=== PATIENT | male | born 1960 | race Caucasian/White ===

== ENCOUNTER 2017-02-03 09:01 | Emergency (ER) | payer SELFPAY ==
[2017-02-03 09:02] VITALS: BMI 31.6
[2017-02-03] MEDS ORDERED: Sodium Chloride 0.9% 1,000 ML IV ONE (09:23)
[2017-02-03 09:28] VITALS: TEMP 97.8
[2017-02-03] MEDS ORDERED: Sodium Chloride 0.9% 1,000 ML ONE (09:33)
--- NOTE | 2017-02-03 09:52 | C.PDOC ---
History Of Present Illness 56 y/o male with PMHx of Diverticulitis presents to ED with complaints of abdominal pain , nausea and vomiting since last night with subjective fever. Patient denies blood in stool, diarrhea. pt reports "Tingling to lower extremities" pt reports pain worse to his suprapubic region and "feels like his diverticulitis"No further complaints at this time. Time Seen by Provider: 02/03/17 09:11 Chief Complaint (Nursing): Abdominal Pain History Per: Patient History/Exam Limitations: no limitations Onset/Duration Of Symptoms: Days Past Medical History Reviewed: Historical Data, Nursing Documentation, Vital Signs Vital Signs: Last Vital Signs Temp 97.8 F 02/03/17 09:21 Pulse 74 02/03/17 09:21 Resp 20 02/03/17 09:21 BP 119/78 02/03/17 09:21 Pulse Ox 97 02/03/17 10:12 - Medical History PMH: Diverticulitis (BY CT IMAGING PER PT) Family History: States: Unknown Family Hx - Social History Hx Tobacco Use: No Hx Alcohol Use: No Hx Substance Use: No - Immunization History Hx Tetanus Toxoid Vaccination: No Hx Influenza Vaccination: No Hx Pneumococcal Vaccination: No Review Of Systems Except As Marked, All Systems Reviewed And Found Negative. Constitutional: Negative for: Fever, Chills Gastrointestinal: Positive for: Nausea, Vomiting, Abdominal Pain. Negative for : Diarrhea Genitourinary: Negative for: Dysuria Neurological: Negative for: Dizziness Physical Exam - Physical Exam Appears: Non-toxic, No Acute Distress Skin: Normal Color, Warm Head: Atraumatic, Normacephalic Oral Mucosa: Moist Neck: Normal ROM Cardiovascular: Rhythm Regular Respiratory: No Rales, No Rhonchi, No Wheezing Gastrointestinal/Abdominal: Tenderness (Mild focal tenderness to superpubic region), No Guarding, No Rebound Extremity: Normal ROM Neurological/Psych: Oriented x3, Normal Speech, Normal Cognition ED Course And Treatment - Laboratory Results Result Diagrams: 02/03/17 09:50 02/03/17 09:50 O2 Sat by Pulse Oximetry: 97 Medical Decision Making Medical Decision Making: r/o colitis diverticulitis, uti - labs imaging pending 1025: pt reassesed. pain improved. pt offered ct to r/o diverticultis, appendicitis (minimal rlq ttp), or other pathology. pt declines, specifically requesting antibiotic trial, as pt has had multiple ct scans. understandings cannot r/o perf, abscess or other complication. pt states he will return with worsening. Disposition - Disposition Referrals: [facility] [Outside] [facility] [Outside] Amando Kincaid MD [Staff Provider] - Disposition: HOME/ ROUTINE Disposition Time: 10:25 Condition: STABLE Additional Instructions: please see specialist and clinic. return to er with worsening symptoms or concerns. you are declining ct imaging at this time, but you are able to return to er at any point with any concern. Prescriptions: Ciprofloxacin [Cipro] 500 mg PO BID #20 tab metroNIDAZOLE [Flagyl] 500 mg PO TID #30 tab Instructions: Acute Abdominal Pain (ED), Diverticulitis (ED) Print Language: ITALIAN - Clinical Impression Clinical Impression: Abdominal pain - PA / OPERATING ENGINEER APPRENTICE / Resident Statement / has reviewed & agrees with the documentation as recorded. MD/DO has examined the patient and agrees with the treatment plan. - Scribe Statement The provider has reviewed the documentation as recorded by the Olivia Arias All medical record entries made by the Olivia were at my direction and personally dictated by me. I have reviewed the chart and agree that the record accurately reflects my personal performance of the history, physical exam, medical decision making, and the department course for this patient. I have also personally directed, reviewed, and agree with the discharge instructions and disposition.
[2017-02-03 10:01] LABS: CHLORIDE 101 mmol/L (98-107)
[2017-02-03 10:02] LABS: POTASSIUM 3.8 mmol/L (3.6-5.2); SODIUM 138 mmol/L (132-148)
[2017-02-03 10:03] LABS: BASO % 0.5 % (0.0-2.0); EOS # 0.1 K/uL (0.0-0.7); EOS % 1.7 % (0.0-4.0); HEMATOCRIT 42.9 % (35.0-51.0); LYMPH # 1.5 K/uL (1.0-4.3); LYMPH % 21.6 % (20.0-40.0); MEAN CELL VOLUME 86.4 fL (80.0-94.0); MEAN CORPUSCULAR HEMOGLOBIN 28.6 pg (27.0-31.0); MEAN CORPUSCULAR HGB CONC 33.1 g/dL (33.0-37.0); MONO # 0.9 K/uL (0.0-0.8); RED CELL DISTRIBUTION WIDTH 14.5 % (11.5-14.5); WHITE BLOOD COUNT 6.8 K/uL (4.8-10.8)
[2017-02-03 10:04] LABS: ALB/GLOB RATIO 1.2 (1.0-2.1); ALKALINE PHOSPHATASE 89 U/L (38-126); ALT/SGPT 36 U/L (21-72); AST/SGOT 23 U/L (17-59); BILIRUBIN,TOTAL 0.7 mg/dL (0.2-1.3); BLOOD UREA NITROGEN 28 mg/dL (9-20); CARBON DIOXIDE 23 mmol/L (22-30); GFR AFRICAN-AMERICAN > 60; GLUCOSE,RANDOM 122 mg/dL (75-110)
[2017-02-03 10:05] LABS: CALCIUM 8.9 mg/dl (8.6-10.4); RBC URINE < 1 /hpf (0-3); URINE BILIRUBIN NEGATIVE (NEGATIVE); URINE BLOOD NEGATIVE (NEGATIVE); URINE COLOR Yellow (YELLOW); URINE GLUCOSE (UA) NORMAL (Normal); URINE KETONE NEGATIVE (NEGATIVE); URINE LEUKOCYTE ESTERASE NEG Leu/uL (Negative); URINE PROTEIN NEGATIVE (NEGATIVE); URINE UROBILINOGEN NORMAL mg/dL (0.2-1.0); WBC URINE < 1 /hpf (0-5)
[2017-02-03 10:54] VITALS: BP 123/60; PULSE 66; RESP 18; O2SAT 98
== END 2017-02-03 10:55 | disposition home or self-care (01) ==
LOC: C.ER 09:01
DX: R10.30 Lower abdominal pain, unspecified (principal)
CPT/HCPCS: 80053; 81001; 83690; 85025; 85610; 85730; 96374; 96375; 99284; J1885; J2405; J7040

== ENCOUNTER 2017-06-11 09:12 | Emergency (ER) | payer OTHER, SELFPAY ==
[2017-06-11 09:12] VITALS: BMI 31.6
[2017-06-11 09:32] VITALS: BP 129/85; PULSE 57; RESP 16; TEMP 97.7; O2SAT 98
--- NOTE | 2017-06-11 10:05 | C.PDOC ---
History Of Present Illness 56 yr old male presents to the ER for evaluation of right periorbital swelling and right eye lid swelling for the past 2 days. Patient reports of pain with eye movement. Denies trauma, fever, vision changes, nausea, vomiting, headache, weakness or numbness. Time Seen by Provider: 06/11/17 10:02 Chief Complaint (Nursing): Eye Problem History Per: Patient History/Exam Limitations: no limitations Onset/Duration Of Symptoms: Days (2) Current Symptoms Are (Timing): Still Present Injury To Eye?: No Past Medical History Reviewed: Historical Data, Nursing Documentation, Vital Signs Vital Signs: Last Vital Signs Temp 97.7 F 06/11/17 09:29 Pulse 57 L 06/11/17 09:29 Resp 16 06/11/17 09:29 BP 129/85 06/11/17 09:29 Pulse Ox 98 06/11/17 12:17 - Medical History PMH: Diverticulitis (BY CT IMAGING PER PT) Family History: States: No Known Family Hx - Social History Hx Tobacco Use: No Hx Alcohol Use: No Hx Substance Use: No - Immunization History Hx Tetanus Toxoid Vaccination: No Hx Influenza Vaccination: No Hx Pneumococcal Vaccination: No Review Of Systems Except As Marked, All Systems Reviewed And Found Negative. Constitutional: Negative for: Fever Eyes: Positive for: Pain (Right eye, pain with movement of the eye.), Other ((+ ) Periorbital swelling. Right eyelid swelling. ). Negative for: Vision Change Gastrointestinal: Negative for: Nausea, Vomiting Neurological: Negative for: Weakness, Numbness, Headache Physical Exam - Physical Exam Appears: Non-toxic, No Acute Distress Skin: Warm, Dry, No Rash Head: Atraumatic, Normacephalic Eye(s): bilateral: PERRL, EOMI, right: Other (Periorbital swelling and errythema. Mild pain with ROM of the eye. No conjuctival errythema. ) Oral Mucosa: Moist Neck: Normal, Normal ROM, Supple Lymphatic: No Adenopathy Chest: Symmetrical, No Tenderness Cardiovascular: Rhythm Regular, No Murmur Respiratory: Normal Breath Sounds, No Rales, No Rhonchi, No Stridor, No Wheezing Extremity: Normal ROM, No Swelling Neurological/Psych: Oriented x3, Normal Speech, Normal Cognition, Normal Motor ED Course And Treatment O2 Sat by Pulse Oximetry: 98 (RA) Pulse Ox Interpretation: Normal Against Medical Advice - AMA Patient Left Against Medical Advice: The patient declines admission to the hospital and wishes to leave the Emergency Department. This action is against my medical advice. This decision was made with informed refusal. The patient was told that admission to the hospital is necessary. Explanation of the reasons why were discussed. The risks of leaving were explained to the patient and include, but are not limited to, worsening of known or currently unknown conditions, permanent disability and from undiagnosed or untreated conditions. The patient has the capacity to make this informed decision and understands my explanation of the current medical problem and risks of leaving. The patient voluntarily accepts these risks and signed an AMA form documenting our conversation. The patient was given the opportunity to ask questions and reconsider. The patient was encouraged to return to the Emergency Department at any time for further care. Medical Decision Making Medical Decision Making: PLAN: siuspect periorbital cellulitis, however would like to exclude orbital extention as pt reports "pain with movement" * Bactrim PO * Toradol IM NOTE: Patient refuses any blood work or images at this time. Patient signed out AMA. Disposition - Disposition Referrals: Jer Brink MD [Staff Provider] - Disposition: AGAINST MEDICAL ADVICE Disposition Time: 11:00 Condition: UNKNOWN Additional Instructions: please follow up with your doctor/clinic and specialist. return to er with worsening symptoms or concerns. you are declining any imaging of the eye. you are able to return at any point with any concern Prescriptions: Sulfamethoxazole/Trimethoprim [Bactrim DS 800 mg-160 mg] 1 tab PO BID #14 tab Instructions: Periorbital Cellulitis in Adults (ED) Forms: [employer] (North Korean) Print Language: GREENLANDIC - Clinical Impression Clinical Impression: Periorbital cellulitis - Scribe Statement The provider has reviewed the documentation as recorded by the Jilibemily Ramirez Provider Attestation: All medical record entries made by the Olivia were at my direction and personally dictated by me. I have reviewed the chart and agree that the record accurately reflects my personal performance of the history, physical exam, medical decision making, and the department course for this patient. I have also personally directed, reviewed, and agree with the discharge instructions and disposition.
[2017-06-11] MEDS ORDERED: Tmp-Smz 800 mg-160 mg DS Tab PO STA (10:10)
[2017-06-11] MEDS ORDERED: Tmp-Smz 800 mg-160 mg DS Tab ONE (10:13)
== END 2017-06-11 10:28 | disposition left against medical advice (07) ==
LOC: C.ER 09:12
DX: L03.213 Periorbital cellulitis (principal)
CPT/HCPCS: 96372; 99283; J1885

== ENCOUNTER 2017-08-18 10:08 | Emergency (ER) | payer SELFPAY ==
[2017-08-18 10:08] VITALS: BMI 31.6
--- NOTE | 2017-08-18 10:44 | C.PDOC ---
History Of Present Illness 56 y/o male presents to ED for evaluation of nasal congestion and mild headache for the last few days. Notes taking 800mg Motrin yesterday morning, did not take any medication today. No sick contact. Denies nausea, vomiting, or fever. Time Seen by Provider: 08/18/17 10:27 Chief Complaint (Nursing): Headache History Per: Patient History/Exam Limitations: no limitations Onset/Duration Of Symptoms: Days Current Symptoms Are (Timing): Still Present Quality: Aching Preceeding Symptoms: denies: Visual Disturbances, Known Migraine Symptoms Associated Symptoms: denies: Photophobia, Blurred Vision, Nausea, Vomiting, Extremity Weakness Recent travel outside of the [place]: No Additional History Per: Patient Past Medical History Reviewed: Historical Data, Nursing Documentation, Vital Signs Vital Signs: Last Vital Signs Temp 98.4 F 08/18/17 11:13 Pulse 73 08/18/17 11:13 Resp 16 08/18/17 11:13 BP 127/79 08/18/17 11:13 Pulse Ox 99 08/18/17 11:13 - Medical History PMH: Diverticulitis (BY CT IMAGING PER PT) Denies: Chronic Kidney Disease Family History: States: Unknown Family Hx - Social History Hx Tobacco Use: No Hx Alcohol Use: No Hx Substance Use: No - Immunization History Hx Tetanus Toxoid Vaccination: No Hx Influenza Vaccination: No Hx Pneumococcal Vaccination: No Review Of Systems Except As Marked, All Systems Reviewed And Found Negative. Constitutional: Negative for: Fever, Chills ENT: Positive for: Nose Congestion. Negative for: Ear Pain, Nose Discharge, Throat Pain Cardiovascular: Negative for: Chest Pain Respiratory: Negative for: Cough, Shortness of Breath Gastrointestinal: Negative for: Nausea, Vomiting, Abdominal Pain Neurological: Positive for: Headache. Negative for: Weakness, Numbness, Dizziness Physical Exam - Physical Exam Appears: Non-toxic, No Acute Distress Skin: Normal Color, Warm, Dry Head: Atraumatic, Normacephalic Eye(s): bilateral: Normal Inspection Nose: Other (mild erythema in nasal passageway) Oral Mucosa: Moist Tongue: Normal Appearing Lips: Normal Appearing Throat: Erythema, No Exudate, No Drooling Neck: Normal ROM, Supple Cardiovascular: Rhythm Regular, No Murmur Respiratory: Normal Breath Sounds, No Rales, No Rhonchi, No Wheezing Gastrointestinal/Abdominal: Soft, No Tenderness Extremity: Normal ROM Neurological/Psych: Oriented x3, Normal Speech ED Course And Treatment O2 Sat by Pulse Oximetry: 97 Pulse Ox Interpretation: Normal Medical Decision Making Medical Decision Making: prob sinus headaches- sneezing, erythematous nasal passages, always rubbing his nose, normal ears, and sinus headache described LOW susp of acute brain issues. extensively educated for moderate use of NSAIDS and nasal decongestants. Disposition Doctor Will See Patient In The: Office Counseled Patient/Family Regarding: Studies Performed, Diagnosis - Disposition [facility] Disposition: HOME/ ROUTINE Disposition Time: 10:44 Condition: GOOD Additional Instructions: blaine Dayquil o' Nyquil "SINUS" preparaciones, usualmente 4 veces al reinier robert necessario Cualquier medicamento para el gripe que dice "sinus" tiene el ingrediente para descongestionar los pasages nasales. Ibuprofeno/Motrin/Advil 4900-600 mg cada 6 horas robert necessario. Tylenol 1000 mg cada 6 horas robert necessario para dolor de rosalinda. Instructions: Sinusitis (ED), Acute Headache (ED) Forms: [employer] (Persian) Print Language: GUINEAN - Clinical Impression Clinical Impression: Headache, Acute sinusitis - Scribe Statement The provider has reviewed the documentation as recorded by the Jilibemily Russ All medical record entries made by the Scribe were at my direction and personally dictated by me. I have reviewed the chart and agree that the record accurately reflects my personal performance of the history, physical exam, medical decision making, and the department course for this patient. I have also personally directed, reviewed, and agree with the discharge instructions and disposition.
[2017-08-18 11:16] VITALS: BP 127/79; PULSE 73; RESP 16; TEMP 98.4
[2017-08-18 11:33] VITALS: O2SAT 97
== END 2017-08-18 11:21 | disposition home or self-care (01) ==
LOC: C.ER 10:08
DX: J01.90 Acute sinusitis, unspecified (principal); R51 Headache

== ENCOUNTER 2017-11-09 08:36 | Emergency (ER) | payer OTHER ==
[2017-11-09 08:45] VITALS: BMI 30.9
[2017-11-09 08:48] VITALS: PULSE 71; TEMP 98.3
[2017-11-09] MEDS ORDERED: Naproxen 550 mg Tab PO STA (09:26)
--- NOTE | 2017-11-09 09:29 | C.PDOC ---
History Of Present Illness 57 year old male presents to the ER with a complaint of a fever, chills, productive cough, headache, nasal congestion, and body aches since last night. Denies sick contact, recent travel, or abdominal pain. Time Seen by Provider: 11/09/17 09:13 Chief Complaint (Nursing): Flu-like Symptoms History Per: Patient History/Exam Limitations: no limitations Onset/Duration Of Symptoms: Hrs Current Symptoms Are (Timing): Still Present Location Of Pain: Diffuse Myalgias Sick Contacts (Context): None Associated Symptoms: Fever, Chills, Cough (Productive), Myalgias, Nasal Congestion, Other (Headache) Ear Symptoms: Bilateral: None Recent travel outside of the [place]: No Past Medical History Reviewed: Historical Data, Nursing Documentation, Vital Signs Vital Signs: Last Vital Signs Temp 98.3 F 11/09/17 08:45 Pulse 71 11/09/17 09:37 Resp 16 11/09/17 09:37 BP 130/82 11/09/17 09:37 Pulse Ox 97 11/09/17 11:49 - Medical History PMH: Diverticulitis (BY CT IMAGING PER PT) Family History: States: Unknown Family Hx - Social History Hx Tobacco Use: No Hx Alcohol Use: No Hx Substance Use: No - Immunization History Hx Tetanus Toxoid Vaccination: No Hx Influenza Vaccination: No Hx Pneumococcal Vaccination: No Review Of Systems Except As Marked, All Systems Reviewed And Found Negative. Constitutional: Positive for: Fever, Chills ENT: Positive for: Nose Congestion Respiratory: Positive for: Cough (Productive) Musculoskeletal: Positive for: Other (Body aches) Neurological: Positive for: Headache Physical Exam - Physical Exam Appears: Non-toxic, Other (Mildly uncomfortable) Skin: Normal Color, Warm, Dry Head: Atraumatic, Normacephalic Eye(s): bilateral: Normal Inspection Ear(s): Bilateral: Normal Nose: Normal Oral Mucosa: Moist Throat: Normal, No Erythema, No Exudate Neck: Normal, Supple Chest: Symmetrical, Tenderness Cardiovascular: Rhythm Regular Respiratory: Normal Breath Sounds, No Rales, No Rhonchi, No Wheezing, Other ( Coughing occasionally) Gastrointestinal/Abdominal: Soft, No Tenderness Neurological/Psych: Oriented x3, Normal Speech ED Course And Treatment O2 Sat by Pulse Oximetry: 97 (Room air) Pulse Ox Interpretation: Normal Progress Note: Patient presents with flu like symptoms will treat with naproxen and tamiflu. Patient reports improvement of symptoms, will discharge with instructions to follow up with PMD or return if symptoms worsen. Disposition Counseled Patient/Family Regarding: Diagnosis, Need For Followup, Rx Given - Disposition Referrals: [facility] [Outside] Disposition: HOME/ ROUTINE Disposition Time: 09:35 Condition: STABLE Prescriptions: Benzonatate [Tessalon Perles] 100 mg PO BID PRN #15 sgl PRN Reason: Cough Naproxen 375 mg PO BID PRN #20 tablet PRN Reason: pain Oseltamivir Phosphate [Tamiflu] 75 mg PO BID #10 capsule Instructions: Viral Syndrome (DC) Forms: [employer] (Tajik) Print Language: SLOVAK - Clinical Impression Clinical Impression: Influenza-like illness, Viral syndrome - Scribe Statement The provider has reviewed the documentation as recorded by the Scribemily Nails All medical record entries made by the Jilibemily were at my direction and personally dictated by me. I have reviewed the chart and agree that the record accurately reflects my personal performance of the history, physical exam, medical decision making, and the department course for this patient. I have also personally directed, reviewed, and agree with the discharge instructions and disposition.
[2017-11-09] MEDS ORDERED: Naproxen 550 mg Tab PO ONE (09:35)
[2017-11-09 09:37] VITALS: BP 130/82; RESP 16
[2017-11-09 11:46] VITALS: O2SAT 97
== END 2017-11-09 09:47 | disposition home or self-care (01) ==
LOC: C.ER 08:36
DX: J11.1 Influenza due to unidentified influenza virus with other respiratory manifestations (principal); B34.9 Viral infection, unspecified